=== PATIENT | male | born 1995 | race Caucasian/White ===

== ENCOUNTER 2017-02-12 16:33 | Emergency (ER) | payer SELFPAY ==
[~2017-02-12] VITALS: Ht 182.9 cm; Wt 93.3 kg
[2017-02-12 16:39] VITALS: BP 129/65; PULSE 69; RESP 18; TEMP 98; O2SAT 98
--- NOTE | 2017-02-12 16:58 | PD ---
HPI Chief Complaint: Cold / Flu Symptoms Time Seen by Provider: 16:58 Travel History International Travel<30 days: No Contact w/Intl Traveler<30days: No Traveled to known affect area: No History of Present Illness HPI 21-year-old male presents to the emergency department for evaluation of cough since yesterday. The patient states that yesterday he developed a "bad cough." States that it is a productive cough with clear sputum. States that he does have some mild difficulty breathing when coughing. States that he has also had slight nasal congestion as well. Denies chest pain, shortness of breath, lightheadedness, dizziness, nausea, vomiting, diarrhea, abdominal pain, sore throat. Denies any recent travel or sick contacts. Denies any history of lung disease however does admit to smoking cigarettes. No other complaints. PFSH Past Medical History Medical History: Denies Significant Hx Diminished Hearing: No Tetanus Vaccination: Unknown Past Surgical History Surgical History: No Previous Surgery Social History Alcohol Use: No Tobacco Use: Yes (/2 PPD) Substance Use: No Allergies-Medications (Allergen,Severity, Reaction): Coded Allergies: No Known Allergies (Unverified , 02/12/17) Reported Meds & Prescriptions Reported Meds & Active Scripts Active Tessalon Perles (Benzonatate) 100 Mg Cap 100 Mg PO TID PRN 7 Days Review of Systems Except as stated in HPI: all other systems reviewed are Neg Physical Exam Narrative GENERAL: Well-nourished and well-developed pleasant male patient in no acute distress who is nontoxic appearing. SKIN: Warm and dry. HEAD: Normocephalic and atraumatic. EYES: No injection, drainage, or hyphema noted. PERRLA. EOMI. ENT: No nasal drainage noted. Oropharynx is clear. NECK: Supple and the trachea is midline. CARDIOVASCULAR: Regular rate and rhythm. RESPIRATORY: Breath sounds are equal bilaterally with no accessory muscle use, wheezing, rhonchi, or crackles. MUSCULOSKELETAL: No obvious deformities, swelling, cyanosis, or ecchymosis is present throughout the upper and lower extremities. Patient has full range of motion without any signs of neurovascular compromise. NEUROLOGICAL: Awake, alert, and oriented. Normal speech and gait. Cranial nerves are grossly intact. Data Data Last Documented VS Vital Signs Date Time Temp Pulse Resp B/P Pulse Ox O2 Delivery O2 Flow Rate FiO2 02/12/17 16:39 98.0 69 18 129/65 98 Orders Chest, Pa & Lat (02/12/17 16:57) MDM Medical Decision Making Medical Screen Exam Complete: Yes Emergency Medical Condition: Yes Differential Diagnosis URI versus bronchitis versus cough versus allergies Narrative Course 21-year-old male presents to the emergency department for evaluation of cough for 2 days. Patient is afebrile, vital signs are stable. Physical examination is unremarkable. Lungs are clear to auscultation. I discussed with the patient that his vital signs and physical examination are within normal limits. Patient states that he is still concerned because he has never had a cough like this previously and therefore we will do a chest x-ray. Chest x-ray is negative for any acute abnormalities. Patient will be prescribed Tessalon Perles. Discussed supportive care. Advised follow-up with his PCP as needed. Patient verbalizes understanding and agreement with treatment plan. Diagnosis Primary Impression: Cough Referrals: Primary Care Physician Patient Instructions: Acute Cough (ED), General Instructions Additional Instructions: We did a chest x-ray that was unremarkable. You can also try [id number] Mucinex DM to help with cough. Take medication as prescribed with food and a full glass of water. Follow-up with your Primary Care Physician. Return to the ED for any acute worsening of symptoms. Med/Other Pt SpecificInfo: Prescription(s) given Scripts Benzonatate (Tessalon Perles)100 Mg Vld200 Mg PO TID PRN (COUGH) 7 Days Ref 0 Prov:Benitez Maldonado MD 02/12/17 Disposition: 01 DISCHARGE HOME Condition: Stable Shannan Melissa February 12, 2017 16:58
[2017-02-12] MEDS ORDERED: BENZ100 PO (17:17)
--- NOTE | 2017-02-12 17:46 | RADHPO ---
EXAM DATE/TIME: 02/12/2017 17:07 [facility] COMPARISON: No previous studies available for comparison. INDICATIONS : Patient has had cough since yesterday.Chest pain occurs when patient coughs and is a pain score of fi ve. MEDICAL HISTORY : None. SURGICAL HISTORY : None. ENCOUNTER: Initial ACUITY: 1 day PAIN SCORE: 5/10 LOCATION: Bilateral chest FINDINGS: PA and lateral views of the chest demonstrate the lungs to be symmetrically aerated without evidence of mass, infiltrate or effusion. The cardiomediastinal contours are unremarkable. Osseous structure s are intact. Scoliotic curvature. CONCLUSION: Normal examination. Darvin Avina Jr., MD on February 12, 2017 at 17:44 Board Certified Radiologist. This report was verified electronically.
== END 2017-02-12 17:55 | disposition home or self-care (01) ==
LOC: PHEFT 16:33
DX: R05 Cough (principal); F17.210 Nicotine dependence, cigarettes, uncomplicated
CPT/HCPCS: 71020; 99283

== ENCOUNTER 2017-05-05 16:10 | Emergency (ER) | payer SELFPAY ==
[~2017-05-05] VITALS: Ht 182.9 cm; Wt 94.5 kg
[~2017-05-05 16:10] MED LIST: BENZ100 PO
[2017-05-05 16:13] VITALS: BP 155/64; PULSE 81; RESP 16; TEMP 99.1; O2SAT 100
--- NOTE | 2017-05-05 16:40 | PD ---
HPI Chief Complaint: Headache Time Seen by Provider: 16:23 Travel History International Travel<30 days: No Contact w/Intl Traveler<30days: No Traveled to known affect area: No History of Present Illness HPI Seven months prior the patient fell down stairs causing nasal bone fractures. Since then the patient experiences frequent nosebleeds followed by headache. The nosebleeds prevent him from flying. He wonders if there is a medication he can take to prevent the nosebleeds. The patient smokes tobacco. Headaches last a few days and present intermittently during that time. Ibuprofen does not seem to help. PFSH Past Medical History Medical History: Denies Significant Hx Diminished Hearing: No Past Surgical History Surgical History: No Previous Surgery Social History Alcohol Use: No Tobacco Use: Yes (1/2 PPD) Substance Use: No Allergies-Medications (Allergen,Severity, Reaction): Coded Allergies: No Known Allergies (Unverified , 05/05/17) Reported Meds & Prescriptions Reported Meds & Active Scripts Active No Active Prescriptions or Reported Medications Review of Systems General / Constitutional: No: Fever HENT: Positive: Nosebleed Physical Exam Narrative GENERAL: 21-year-old male well-nourished well-developed no acute distress SKIN: Warm and dry. HEAD: Normocephalic. EYES: No scleral icterus. No injection or drainage. NECK: Supple, trachea midline. No JVD or lymphadenopathy. There is no prominent vasculature in the visualized portion of the naris. There is no blood in the naris. CARDIOVASCULAR: Regular rate and rhythm without murmurs, gallops, or rubs. RESPIRATORY: Breath sounds equal bilaterally. No accessory muscle use. GASTROINTESTINAL: Abdomen soft, non-tender, nondistended. MUSCULOSKELETAL: No cyanosis, or edema. BACK: Nontender without obvious deformity. No CVA tenderness. Data Data Last Documented VS Vital Signs Date Time Temp Pulse Resp B/P Pulse Ox O2 Delivery O2 Flow Rate FiO2 05/05/17 16:13 99.1 81 16 155/64 100 Vital signs reviewed Orders Complete Blood Count With Diff (05/05/17 16:34) Labs Laboratory Tests Test 05/05/17 16:57 White Blood Count 7.1 TH/MM3 Red Blood Count 5.85 MIL/MM3 Hemoglobin 16.8 GM/DL Hematocrit 50.6 % Mean Corpuscular Volume 86.5 FL Mean Corpuscular Hemoglobin 28.6 PG Mean Corpuscular Hemoglobin 33.1 % Concent Red Cell Distribution Width 12.2 % Platelet Count 219 TH/MM3 Mean Platelet Volume 7.9 FL Neutrophils (%) (Auto) 52.2 % Lymphocytes (%) (Auto) 30.4 % Monocytes (%) (Auto) 9.9 % Eosinophils (%) (Auto) 6.0 % Basophils (%) (Auto) 1.5 % Neutrophils # (Auto) 3.7 TH/MM3 Lymphocytes # (Auto) 2.2 TH/MM3 Monocytes # (Auto) 0.7 TH/MM3 Eosinophils # (Auto) 0.4 TH/MM3 Basophils # (Auto) 0.1 TH/MM3 CBC Comment DIFF FINAL Differential Comment MDM Medical Decision Making Medical Screen Exam Complete: Yes Emergency Medical Condition: Yes Medical Record Reviewed: Yes Differential Diagnosis Anterior epistaxis, posterior epistaxis, hypocoagulable state, complication from nasal bone fractures Narrative Course CBC normal Pt advised to follow up with ENT. Application of topical cream/moisturizer discussed. Three days off work prescribed. 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 Diagnosis Primary Impression: Epistaxis Additional Impressions: Cephalgia Qualified Code: R51 - Nonintractable episodic headache, unspecified headache type Tobacco use Referrals: Dallas Suarez MD call for appointment Additional Instructions: You have a choice when it comes to health care, and we are glad that you chose [facility]. Hopefully, we have met your expectations on today's visit. You are welcome to return to [facility] at any time, as we are committed to meeting the health care needs of our community. Med/Other Pt SpecificInfo: No Change to Meds Scripts No Active Prescriptions or Reported Meds Disposition: DISCHARGE HOME Condition: Koffi Young MD May 05, 2017 16:40
[2017-05-05 17:09] LABS: AUTOMATED NEUTROPHIL # 3.7 TH/MM3 (1.8-7.7); BASOPHIL # 0.1 TH/MM3 (0-0.2); BASOPHIL % 1.5 % (0.0-2.0); EOSINOPHIL # 0.4 TH/MM3 (0-0.4); HEMATOCRIT 50.6 % (39.0-51.0); LYMPH % 30.4 % (9.0-44.0); LYMPHOCYTE # 2.2 TH/MM3 (1.0-4.8); MEAN CELL VOLUME 86.5 FL (80.0-100.0); MEAN CORPUSCULAR HEMOGLOBIN 28.6 PG (27.0-34.0); MEAN CORPUSCULAR HGB CONC 33.1 % (32.0-36.0); MONO % 9.9 % (0.0-8.0); NEUT % 52.2 % (16.0-70.0); PLATELET COUNT 219 TH/MM3 (150-450); RED BLOOD COUNT 5.85 MIL/MM3 (4.50-5.90); RED CELL DISTRIBUTION WIDTH 12.2 % (11.6-17.2); WHITE BLOOD COUNT 7.1 TH/MM3 (4.0-11.0)
[2017-05-05 17:24] LABS: HEMO FLAGS DIFF FINAL
== END 2017-05-05 18:04 | disposition home or self-care (01) ==
LOC: PHEFT 16:10
DX: R04.0 Epistaxis (principal); R51 Headache; F17.200 Nicotine dependence, unspecified, uncomplicated
CPT/HCPCS: 85025; 99283

== ENCOUNTER 2017-06-30 16:03 | Emergency (ER) | payer SELFPAY ==
[~2017-06-30] VITALS: Ht 188 cm; Wt 85.0 kg
[2017-06-30 16:05] VITALS: BP 155/91; PULSE 81; RESP 12; TEMP 98.6; O2SAT 97
--- NOTE | 2017-06-30 16:18 | PD ---
HPI Chief Complaint: Cold / Flu Symptoms Time Seen by Provider: 16:17 Travel History International Travel<30 days: No Contact w/Intl Traveler<30days: No Traveled to known affect area: No History of Present Illness HPI 21-year-old male presents emergency Department with complaint of nasal congestion, cough, chest tightness, shortness of breath 5-7 days. Denies wheezing. Reports subjective fever and chills. Reports body aches. Denies ear pain or sore throat. Denies vomiting. Denies history of asthma. Reports tobacco use. Has used [id number] cold/cough medication for symptom management. Symptoms are mild in severity. No known allergies. Has no medical complaints. No other modifying factors or associated signs and symptoms. PFSH Past Medical History Medical History: Denies Significant Hx Diminished Hearing: No Tetanus Vaccination: < 5 Years Influenza Vaccination: Yes Past Surgical History Surgical History: No Previous Surgery Social History Alcohol Use: No Tobacco Use: Yes (1/2 PPD) Substance Use: No Allergies-Medications (Allergen,Severity, Reaction): Coded Allergies: No Known Allergies (Unverified , 06/30/17) Reported Meds & Prescriptions Reported Meds & Active Scripts Active Deltasone (Prednisone) 20 Mg Tab 40 Mg PO DAILY 4 Days start 07/01/2017 Nasonex Nasal [place] (Mometasone Furoate) 50 Mcg/Act Naspr 2 [place] EACH NARE DAILY PRN Tessalon Perles (Benzonatate) 100 Mg Cap 100 Mg PO TID PRN Proair Hfa 8.5 GM Inh (Albuterol Sulfate) 90 Mcg/Act Aer 2 Puff INH Q4-6H PRN 108 mcg/actuation Azithromycin 500 Mg Tab 500 Mg PO DAILY Review of Systems Except as stated in HPI: all other systems reviewed are Neg Physical Exam Narrative GENERAL: Well-nourished, well-developed male patient, in no acute distress; afebrile, nontoxic-appearing SKIN: Warm and dry. HEAD: Atraumatic. Normocephalic. EYES: Pupils equal and round. No scleral icterus. No injection or drainage. ENT: Mucosa pink and moist. No erythema or exudates. No uvular edema. No uvular , palatal, or tonsillar deviation. Airway patent. EARS: Bilateral pinnae and external canals appear within normal limits. Bilateral tympanic membranes without erythema, dullness or perforation. NECK: Trachea midline. No lymphadenopathy. CARDIOVASCULAR: Regular rate and rhythm. No murmur appreciated. RESPIRATORY: No accessory muscle use. Lungs with mild Wheezing throughout to auscultation. Breath sounds equal bilaterally. No retractions or tachypnea. No Audible wheezing noted. Moist cough noted.. GASTROINTESTINAL: Flat. MUSCULOSKELETAL: No obvious deformities. No clubbing. No cyanosis. No edema. NEUROLOGICAL: Awake and alert. Oriented 3. No obvious cranial nerve deficits. Motor grossly within normal limits. Normal speech. Moves all extremities. 5/5 strength to all extremities. PSYCHIATRIC: Appropriate mood and affect; insight and judgment normal. Data Data Last Documented VS Vital Signs Date Time Temp Pulse Resp B/P (MAP) Pulse Ox O2 Delivery O2 Flow Rate FiO2 06/30/17 16:11 Room Air 06/30/17 16:05 98.6 81 12 155/91 (112) 97 Orders Orders Chest, Pa & Lat (06/30/17 16:17) Prednisone (Deltasone) (06/30/17 16:30) Albuterol Neb (Albuterol Neb) (06/30/17 16:30) Influenzae A/B Antigen (06/30/17 16:18) MDM Medical Decision Making Medical Screen Exam Complete: Yes Emergency Medical Condition: Yes Medical Record Reviewed: Yes Differential Diagnosis Influenza, pneumonia, URI, viral illness, bronchitis Narrative Course 21-year-old male with cough/cold/flu symptoms for approximately one week. Reports subjective fever. Patient is afebrile and nontoxic-appearing. 1659: Chest x-ray concludes: Last 24 hours Impressions Chest X-Ray 06/30/17 1617 Signed Impressions: Service Date/Time: Friday, June 30, 2017 16:28 - CONCLUSION: No acute cardiopulmonary process. Matthew Agustin MD 1711: Influenza negative. Azithromycin, Pro Air inhaler, Deltasone, Tessalon Perles prescribed for home. Instructed patient to follow up with primary care provider. Patient verbalizes understanding and agreement with treatment plan. Patient is medically cleared and stable for discharge. Discussed reasons to return to the emergency department. Patient agrees with treatment plan. The patients vital signs are stable and the patient is stable for outpatient follow- up and treatment. Patient discharged home, stable and in no acute distress. Diagnosis Primary Impression: Acute bronchitis Qualified Codes: J20.9 - Acute bronchitis, unspecified Additional Impression: URI (upper respiratory infection) Qualified Codes: J06.9 - Acute upper respiratory infection, unspecified Referrals: Primary Care Physician Patient Instructions: Acute Bronchitis (ED), Cold Symptoms (ED), General Instructions, Safe Use of Cough and Cold Medicines (ED), Upper Respiratory Infection (ED) Additional Instructions: Use Albuterol inhaler as prescribed Take oral steroids as prescribed and complete full course Use Tessalon Perles as prescribed to decrease coughing spasms Rmlb-[id number]-[id number] decongestants or antihistamines as directed and as needed for symptom management Your cough can last 4-6 weeks Drink plenty of fluids to prevent dehydration Use hot air humidifier to decrease cough exacerbation Turn off ceiling fans and sleep with head of bed elevated Avoid triggers such as second hand smoke, dust, known allergens Follow-up with your primary care provider Return to the emergency department immediately with worsening of symptoms Med/Other Pt SpecificInfo: Prescription(s) given Scripts Prednisone (Deltasone) 20 Mg Tab 40 MG PO DAILY for 4 Days, #8 TAB 0 Refills start 07/01/2017 Prov: Shannan Lucero 06/30/17 Mometasone Nasal [place] (Nasonex Nasal [place]) 50 Mcg/Act Naspr 2 SPRAY EACH NARE DAILY Y for NASAL CONGESTION, #1 BOTTLE 0 Refills Prov: Shannan Lucero 06/30/17 Benzonatate (Tessalon Perles) 100 Mg Cap 100 MG PO TID Y for COUGH, #10 CAP 0 Refills Prov: Shannan Lucero 06/30/17 Albuterol 8.5 GM Inh (Proair Hfa 8.5 GM Inh) 90 Mcg/Act Aer 2 PUFF INH Q4-6H Y for SOB/WHEEZING, #1 INHALER 0 Refills 108 mcg/actuation Prov: Shannan Lucero 06/30/17 Azithromycin (Azithromycin) 500 Mg Tab 500 MG PO DAILY for Infection, #5 TAB 0 Refills Prov: Shannan Lucero 06/30/17 Disposition: 01 DISCHARGE HOME Condition: Stable Shannan Lucero Jun 30, 2017 16:18
[2017-06-30] MEDS ORDERED: RESP: ALBUTEROL 2.5 MG/3 ML NEB (SCH) INH ONE (16:30)
[2017-06-30] MEDS ORDERED: predniSONE 20 MG TAB PO ONE (16:30)
[2017-06-30] MEDS ORDERED: ALBUAER3 INH (16:34)
[2017-06-30] MEDS ORDERED: PRED-503 PO (16:34)
[2017-06-30] MEDS ORDERED: BENZ100 PO (16:34)
[2017-06-30] MEDS ORDERED: AZIT500T2 PO (16:34)
[2017-06-30] MEDS ORDERED: MOME17I EACH NARE (16:34)
--- NOTE | 2017-06-30 16:50 | RADRPT ---
EXAM DATE/TIME: 06/30/2017 16:28 [facility] COMPARISON: CHEST PA & LAT, February 12, 2017, 17:07. INDICATIONS : Cough and cold symptoms for one week, wheezing MEDICAL HISTORY : None. SURGICAL HISTORY : None. ENCOUNTER: Initial ACUITY: 1 week PAIN SCORE: 0/10 LOCATION: Bilateral chest FINDINGS: PA and lateral views of the chest demonstrate the lungs to be symmetrically aerated without evidence of mass, infiltrate or effusion. The cardiomediastinal contours are unremarkable. Osseous structure s are intact with a dextroscoliosis of the dorsal spine which may be positional. CONCLUSION: No acute cardiopulmonary process. Matthew Agustin MD on June 30, 2017 at 16:47 Board Certified Radiologist. This report was verified electronically.
== END 2017-06-30 17:20 | disposition home or self-care (01) ==
LOC: NEPK 16:03
DX: J20.9 Acute bronchitis, unspecified (principal); J06.9 Acute upper respiratory infection, unspecified; F17.200 Nicotine dependence, unspecified, uncomplicated
CPT/HCPCS: 71020; 87804; 94664; 99284; J7512; J7613